=== PATIENT | male | born 1940 | race Caucasian/White ===

== ENCOUNTER 2022-04-01 08:54 | Emergency (ER) | payer MEDICARE ==
[~2022-04-01] VITALS: Ht 182.9 cm; Wt 100.0 kg
[~2022-04-01 08:54] MED LIST: AMLO10TA13; ASPI-611 PO; ATOR40TA PO; CLOP75TA15 PO; LEVO75TA PO; LOSA50TA3 PO; MESALAMINE; NIAC500T23; NITR0.4T51 SL; NONI; SUMA50TA PO; UBID200C18
[2022-04-01 10:41] LABS: BASOPHILS % (AUTO) 0.1 % (0-1); EOSINOPHILS # (AUTO) 0.1 X10'3 (0-0.9); EOSINOPHILS % (AUTO) 1.4 % (0-6); HEMATOCRIT 43.6 % (42.0-52.0); HEMOGLOBIN 14.6 g/dl (14.0-17.9); MEAN CORPUSCULAR HEMOGLOBIN 31.7 PG (27.0-31.0); MEAN CORPUSCULAR HGB CONC 33.4 g/dL (33.0-36.5); MEAN CORPUSCULAR VOLUME 94.7 FL (78-98); MEAN PLATELET VOLUME 8.9 FL (7.4-10.4); MONOCYTES # (AUTO) 1.4 X10'3 (0-0.9); MONOCYTES % (AUTO) 18.5 % (2-12); NEUTROPHILS # (AUTO) 5.1 X10'3 (1.8-7.7); PLATELET COUNT 159 X10'3 (140-440); RED BLOOD COUNT 4.61 X10'6 (4.70-6.10); RED CELL DISTRIBUTION WIDTH 17.1 % (11.5-14.5); WHITE BLOOD COUNT 7.6 X10'3 (4.5-11.0)
[2022-04-01 10:49] LABS: ALANINE AMINOTRANSFERASE 25 U/L (12-78); ALBUMIN 3.8 G/DL (3.4-5.0); ALBUMIN/GLOBULIN RATIO 1.1 (1.1-1.5); ALKALINE PHOSPHATASE 108 IU/L (46-116); ANION GAP 7 (8-16); ASPARTATE AMINO TRANSFERASE 22 U/L (10-37); BILIRUBIN,TOTAL 1.3 MG/DL (0.1-1.0); BLOOD UREA NITROGEN 21 MG/DL (7-18); BUN/CREATININE RATIO 16.9 (5.4-32.0); CALCIUM 8.7 MG/DL (8.5-10.1); CHLORIDE 104 MMOL/L (99-107); CREATININE 1.24 MG/DL (0.60-1.10); GLUCOSE 102 MG/DL (70-104); POTASSIUM 3.9 MMOL/L (3.5-5.1); SODIUM 141 MMOL/L (135-145); TOTAL CARBON DIOXIDE 29.7 MMOL/L (24-32); TOTAL PROTEIN 7.3 G/DL (6.4-8.2); eGFR 56 ML/MIN
[2022-04-01 11:10] LABS: CLARITY,URINE CLEAR (Clear); COLOR,URINE YELLOW (Yellow); GLUCOSE, URINE NEGATIVE (Neg); KETONES,URINE NEGATIVE (Neg); LEUKOCYTE ESTERASE ,URINE NEGATIVE (Neg); NITRITES, URINE NEGATIVE (Neg); OCCULT BLOOD,URINE NEGATIVE (Neg); PROTEIN,URINE TRACE mg/dl (Neg); UROBILINOGEN,URINE 0.2 E.U/dL (0.2-1.0)
[2022-04-01 11:12] LABS: UA COLLECTION TYPE CLN CATCH MIDSTREAM
[2022-04-01 11:22] LABS: HYALINE CASTS 0-3 /LPF (NEGATIVE)
[2022-04-01 11:23] LABS: MUCUS STRANDS MODERATE /LPF (Neg); SQUAMOUS EPITHELIAL CELL,UR NONE SEEN /LPF (FEW)
[2022-04-01 11:25] LABS: BACTERIA,URINE FEW /HPF (Neg); RBC,URINE 0-2 /HPF (0-2); WBC,URINE 0-4 /HPF (0-4)
[2022-04-01] MEDS ORDERED: acetaminophen 325mg tablet PO ONE (12:45)
[2022-04-01] MEDS ORDERED: ketorolac trometh. 30mg/ml inj. IV ONE (12:45)
[2022-04-01] MEDS ORDERED: bisacodyl 5mg tablet.DR PO ONE (14:00)
[2022-04-01] MEDS ORDERED: BISA-78 PO (14:02)
[2022-04-01] MEDS ORDERED: POLY119P2 PO (14:02)
[2022-04-01 14:35] VITALS: BP 132/86
== END 2022-04-01 14:36 | disposition home or self-care (01) ==
LOC: ER 08:55
DX: N28.1 Cyst of kidney, acquired (principal); R53.1 Weakness; R10.31 Right lower quadrant pain; M54.50 Low back pain, unspecified; G43.909 Migraine, unspecified, not intractable, without status migrainosus; I25.10 Atherosclerotic heart disease of native coronary artery without angina pectoris; E78.00 Pure hypercholesterolemia, unspecified; I10 Essential (primary) hypertension; Z86.73 Personal history of transient ischemic attack (TIA), and cerebral infarction without residual deficits; Z98.890 Other specified postprocedural states; Z88.0 Allergy status to penicillin; Z79.82 Long term (current) use of aspirin; Z79.899 Other long term (current) drug therapy
CPT/HCPCS: 36415; 71045; 74176; 80053; 81001; 83735; 83880; 84484; 85025; 93005; 96374; 99285; J1885

== ENCOUNTER 2022-08-02 13:54 | Emergency (ER) | payer MEDICARE ==
[~2022-08-02] VITALS: Ht 185.4 cm; Wt 97.3 kg
[~2022-08-02 13:54] MED LIST changes: +BISA-78 PO; +POLY119P2 PO
[2022-08-02 14:01] VITALS: BP 134/85
[2022-08-02 15:10] LABS: CLARITY,URINE CLOUDY (Clear); COLOR,URINE YELLOW (Yellow); GLUCOSE, URINE NEGATIVE (Neg); KETONES,URINE NEGATIVE (Neg); LEUKOCYTE ESTERASE ,URINE SMALL (Neg); NITRITES, URINE POSITIVE (Neg); OCCULT BLOOD,URINE TRACE-INTACT (Neg); PH,URINE 5.5 (4.8-8.0); PROTEIN,URINE TRACE mg/dl (Neg); UROBILINOGEN,URINE 0.2 E.U/dL (0.2-1.0)
[2022-08-02 15:13] LABS: UA COLLECTION TYPE VOIDED
[2022-08-02 15:21] LABS: SQUAMOUS EPITHELIAL CELL,UR FEW /LPF (FEW)
[2022-08-02 15:22] LABS: BACTERIA,URINE 3+ /HPF (Neg); WBC CLUMPS,URINE FEW /HPF (NEGATIVE); WBC,URINE TNTC /HPF (0-4)
[2022-08-02] MEDS ORDERED: CEFD300C21 PO (16:10)
[2022-08-02] MEDS ORDERED: cefuroxime axetil 250mg tablet PO SCH (17:05)
[2022-08-02] MEDS ORDERED: cefuroxime axetil 250mg tablet PO ONE (17:05)
== END 2022-08-02 17:27 | disposition home or self-care (01) ==
LOC: ER 13:55
DX: N12 Tubulo-interstitial nephritis, not specified as acute or chronic (principal); G43.909 Migraine, unspecified, not intractable, without status migrainosus; E78.00 Pure hypercholesterolemia, unspecified; I10 Essential (primary) hypertension; I11.0 Hypertensive heart disease with heart failure; Z88.0 Allergy status to penicillin; Z79.899 Other long term (current) drug therapy; Z79.82 Long term (current) use of aspirin; Z79.2 Long term (current) use of antibiotics
CPT/HCPCS: 81001; 87077; 87088; 87186; 99283

== ENCOUNTER 2022-09-03 09:43 | Emergency (ER) | payer MEDICARE ==
[~2022-09-03] VITALS: Ht 182.9 cm; Wt 95.0 kg
[~2022-09-03 09:43] MED LIST changes: +etomidate 2mg/ml inj. ONE; +rocuronium 10mg/ml inj IV ONE
[2022-09-03 10:56] LABS: BASOPHILS % (AUTO) 0.2 % (0-1); EOSINOPHILS % (AUTO) 0.1 % (0-6); HEMATOCRIT 38.8 % (42.0-52.0); HEMOGLOBIN 13.1 g/dl (14.0-17.9); LYMPHOCYTES # (AUTO) 0.6 X10'3 (1.1-4.8); MEAN CORPUSCULAR HGB CONC 33.9 g/dL (33.0-36.5); MEAN CORPUSCULAR VOLUME 97.5 FL (78-98); MEAN PLATELET VOLUME 7.9 FL (7.4-10.4); MONOCYTES # (AUTO) 0.9 X10'3 (0-0.9); NEUTROPHILS # (AUTO) 7.5 X10'3 (1.8-7.7); NEUTROPHILS % (AUTO) 82.7 % (42-75); PLATELET COUNT 135 X10'3 (140-440); RED BLOOD COUNT 3.98 X10'6 (4.70-6.10); RED CELL DISTRIBUTION WIDTH 17.2 % (11.5-14.5); WHITE BLOOD COUNT 9.1 X10'3 (4.5-11.0)
[2022-09-03] MEDS ORDERED: CefTRIAXone 2gm/D5W 50ml BAG 50 ML IV ONE (11:10)
[2022-09-03] MEDS ORDERED: normal saline 1000ML IV soln IV ONE (11:10)
[2022-09-03 11:13] LABS: ALANINE AMINOTRANSFERASE 48 U/L (12-78); ALBUMIN 3.1 G/DL (3.4-5.0); ALBUMIN/GLOBULIN RATIO 1.3 (1.1-1.5); ALKALINE PHOSPHATASE 111 IU/L (46-116); ANION GAP 9 (8-16); ASPARTATE AMINO TRANSFERASE 80 U/L (10-37); BILIRUBIN,TOTAL 1.7 MG/DL (0.1-1.0); BLOOD UREA NITROGEN 19 MG/DL (7-18); BUN/CREATININE RATIO 16.5 (5.4-32.0); CALCIUM 8.2 MG/DL (8.5-10.1); CHLORIDE 111 MMOL/L (99-107); CREATININE 1.15 MG/DL (0.60-1.10); GLUCOSE 166 MG/DL (70-104); POTASSIUM 3.3 MMOL/L (3.5-5.1); SODIUM 144 MMOL/L (135-145); TOTAL CARBON DIOXIDE 24.1 MMOL/L (24-32); TOTAL PROTEIN 5.5 G/DL (6.4-8.2); eGFR 61 ML/MIN
[2022-09-03] MEDS ORDERED: aspirin 81mg tab.chew PO ONE (11:25)
[2022-09-03 11:51] LABS: CLARITY,URINE CLEAR (Clear); COLOR,URINE YELLOW (Yellow); GLUCOSE, URINE NEGATIVE (Neg); KETONES,URINE NEGATIVE (Neg); LEUKOCYTE ESTERASE ,URINE NEGATIVE (Neg); NITRITES, URINE NEGATIVE (Neg); OCCULT BLOOD,URINE LARGE (Neg); PROTEIN,URINE 100 mg/dl (Neg); UROBILINOGEN,URINE 0.2 E.U/dL (0.2-1.0)
[2022-09-03 12:04] VITALS: BP 97/64
[2022-09-03 12:10] LABS: UA COLLECTION TYPE STRAIGHT CATH
[2022-09-03 12:11] LABS: BACTERIA,URINE NONE SEEN /HPF (Neg); MUCUS STRANDS NONE SEEN /LPF (Neg); SQUAMOUS EPITHELIAL CELL,UR NONE SEEN /LPF (FEW); WBC,URINE NONE SEEN /HPF (0-4)
[2022-09-03] MEDS ORDERED: iohexol 350MG/ML 100ml bottle IV ONE (12:16)
[2022-09-03] MEDS ORDERED: metoprolol tartrate 1mg/ml inj IV SCH (13:05)
[2022-09-03] MEDS ORDERED: NORepinephrine inj. 32 MG in normal saline 250ml IV soln 218 ML IV SCH (13:10)
[2022-09-03] MEDS ORDERED: potassium CL 10mEq/100ml bag 100 ML IV PRN (13:20)
[2022-09-03] MEDS ORDERED: NORepinephrine 8mg/ 250ml NS 250 ML IV SCH (13:20)
[2022-09-03] MEDS ORDERED: ondansetron/PF 4mg/2ml inj IV PRN (13:20)
[2022-09-03] MEDS ORDERED: magnesium Cl slow-release 64mg tablet PO PRN (13:20)
[2022-09-03] MEDS ORDERED: magnesium 4gm in 100ml NS 100 ML IV PRN (13:20)
[2022-09-03] MEDS ORDERED: POTASSIUM BICARB 20meq eff tab 20 MEQ TABLET.EFF PO PRN ×2 (13:20)
[2022-09-03] MEDS ORDERED: acetaminophen 325mg tablet PO PRN (13:20)
[2022-09-03] MEDS ORDERED: magnesium 2GM in 50ml NS 50 ML IV PRN (13:20)
[2022-09-03] MEDS ORDERED: HYDROcodone/acetaminophen 5mg/325mg tablet PO PRN (13:20)
[2022-09-03] MEDS ORDERED: LEVO88TA7 PO (14:03)
[2022-09-03] MEDS ORDERED: DEXA4TAB PO (14:09)
[2022-09-03] MEDS ORDERED: DONE-46 PO (14:09)
[2022-09-03] MEDS ORDERED: POTA-206 PO (14:09)
[2022-09-03] MEDS ORDERED: LENA10CA PO (14:09)
--- NOTE | 2022-09-03 15:42 | NUR ---
Son, Bentley, called regarding contact with [facility]os Fontaine in [place]. Discussed further transport and care of patients remains with Son. Completed contact with [employer]'s office at which was not a tank terminal gauger's case, spoke with Donor network and patient is not eligible for organ donation. Bentley will reach out to Karlos Fontaine regarding further information about transport.
[2022-09-03] MEDS ORDERED: K and/or MAG REPLACEMENT MC SCH (20:00)
[2022-09-03] MEDS ORDERED: docusate sod 100mg capsule PO SCH (20:00)
== END 2022-09-03 16:36 ==
LOC: ER 09:43
DX: I71.02 Dissection of abdominal aorta (principal); R53.1 Weakness; I48.91 Unspecified atrial fibrillation; G43.909 Migraine, unspecified, not intractable, without status migrainosus; I25.10 Atherosclerotic heart disease of native coronary artery without angina pectoris; I10 Essential (primary) hypertension; Z86.73 Personal history of transient ischemic attack (TIA), and cerebral infarction without residual deficits; Z87.440 Personal history of urinary (tract) infections; Z98.890 Other specified postprocedural states; Z88.0 Allergy status to penicillin; Z79.82 Long term (current) use of aspirin; Z79.899 Other long term (current) drug therapy
CPT/HCPCS: 31500; 36415; 71045; 71275; 72131; 74174; 76700; 80053; 81001; 84145; 84484; 85025; 92950; 93005; 96365; 99291; 99292; C1758; J0696; J3490; J7030; J7040; Q9967